=== PATIENT | female | born 1955 | race African-American/Black ===

== ENCOUNTER 2019-01-16 12:17 | Emergency (ER) | payer MEDICARE ==
[~2019-01-16] VITALS: Ht 165.1 cm; Wt 76.0 kg
[~2019-01-16 12:17] MED LIST: CIP250T PO; ESOM40CA PO; LEVO5TAB2 PO; MACROBID PO; MOME17SP NS; ZOF4T PO
[2019-01-16 12:32] VITALS: BP 145/86
[2019-01-16] MEDS ORDERED: mupirocin 2% ointment 22GM TP STA (13:26)
== END 2019-01-16 13:43 | disposition home or self-care (01) ==
LOC: ER 12:18
DX: R21 Rash and other nonspecific skin eruption (principal); E03.9 Hypothyroidism, unspecified; F10.99 Alcohol use, unspecified with unspecified alcohol-induced disorder; Z86.14 Personal history of Methicillin resistant Staphylococcus aureus infection; Z88.2 Allergy status to sulfonamides; Z88.8 Allergy status to other drugs, medicaments and biological substances; Z79.899 Other long term (current) drug therapy; Y90.9 Presence of alcohol in blood, level not specified
CPT/HCPCS: 99282

== ENCOUNTER 2021-10-07 02:12 | Emergency (ER) | payer MEDICARE ==
[~2021-10-07] VITALS: Ht 165.1 cm; Wt 75.0 kg
[~2021-10-07 02:12] MED LIST changes: -MOME17SP NS; +MOME17SP5 NS
[2021-10-07] MEDS ORDERED: dexamethasone sod phosphate 10mg/ml inj IV STA (05:04)
[2021-10-07] MEDS ORDERED: BEBTELOVIMAB 175 MG/2 ML VIAL IV ONE (05:05)
[2021-10-07 06:48] VITALS: BP 141/77
== END 2021-10-07 06:49 | disposition home or self-care (01) ==
LOC: ER 02:12
DX: U07.1 COVID-19 (principal); J45.909 Unspecified asthma, uncomplicated; E03.9 Hypothyroidism, unspecified; Z01.84 Encounter for antibody response examination; Z88.2 Allergy status to sulfonamides; Z88.8 Allergy status to other drugs, medicaments and biological substances
CPT/HCPCS: 71045; 96374; 99284; J1100; M0222; Q0222; 99283

== ENCOUNTER 2024-02-09 09:59 | Emergency (ER) | payer MEDICARE ==
[~2024-02-09] VITALS: Ht 165.1 cm; Wt 70.0 kg
[2024-02-09 10:00] VITALS: BP 136/73; PULSE 100; RESP 15; O2SAT 98
[2024-02-09] MEDS: normal saline 1000ML IV soln IVB ONE (11:19)
[2024-02-09 11:32] LABS: BASOPHILS % (AUTO) 0.2 % (0-1); EOSINOPHILS % (AUTO) 0.6 % (0-6); HEMATOCRIT 37.6 % (35.0-45.0); HEMOGLOBIN 12.7 g/dl (12.0-16.0); LYMPHOCYTES # (AUTO) 0.3 X10'3 (1.1-4.8); LYMPHOCYTES % (AUTO) 5.8 % (21-51); MEAN CORPUSCULAR HEMOGLOBIN 29.6 PG (27.0-31.0); MEAN CORPUSCULAR HGB CONC 33.9 g/dL (33.0-36.5); MEAN CORPUSCULAR VOLUME 87.4 FL (78-98); MEAN PLATELET VOLUME 7.3 FL (7.4-10.4); MONOCYTES # (AUTO) 0.3 X10'3 (0-0.9); MONOCYTES % (AUTO) 6.6 % (2-12); NEUTROPHILS # (AUTO) 4.2 X10'3 (1.8-7.7); NEUTROPHILS % (AUTO) 86.8 % (42-75); PLATELET COUNT 266 X10'3 (140-440); RED CELL DISTRIBUTION WIDTH 14.2 % (11.5-14.5); WHITE BLOOD COUNT 4.8 X10'3 (4.5-11.0)
[2024-02-09 11:39] LABS: BILIRUBIN,URINE NEGATIVE (Neg); CLARITY,URINE SLIGHTLY CLOUDY (Clear); COLOR,URINE YELLOW (Yellow); GLUCOSE, URINE NEGATIVE (Neg); KETONES,URINE 15 mg/dl (Neg); LEUKOCYTE ESTERASE ,URINE NEGATIVE (Neg); NITRITES, URINE NEGATIVE (Neg); OCCULT BLOOD,URINE NEGATIVE (Neg); PROTEIN,URINE 30 mg/dl (Neg); UROBILINOGEN,URINE 0.2 E.U/dL (0.2-1.0)
[2024-02-09 11:45] LABS: UA COLLECTION TYPE CLN CATCH MIDSTREAM
[2024-02-09 11:47] LABS: RBC,URINE 0-2 /HPF (0-2)
[2024-02-09] MEDS: ondansetron 4mg rapidly disintigrating tab PO ONE (11:47)
[2024-02-09 11:48] LABS: BACTERIA,URINE FEW /HPF (Neg); SQUAMOUS EPITHELIAL CELL,UR FEW /LPF (FEW)
[2024-02-09 11:49] LABS: TRANSITIONAL EPI CELLS,URINE FEW /HPF; WBC CLUMPS,URINE FEW /HPF (NEGATIVE)
[2024-02-09 11:50] LABS: ALANINE AMINOTRANSFERASE 14 U/L (12-78); ALBUMIN 3.6 G/DL (3.4-5.0); ALKALINE PHOSPHATASE 62 IU/L (46-116); ANION GAP 8 (8-16); ASPARTATE AMINO TRANSFERASE 17 U/L (10-37); BILIRUBIN,TOTAL 0.9 MG/DL (0.1-1.0); BLOOD UREA NITROGEN 16 MG/DL (7-18); CALCIUM 8.6 MG/DL (8.5-10.1); CHLORIDE 105 MMOL/L (99-107); GLUCOSE 113 MG/DL (70-104); LIPASE 15 U/L (16-77); POTASSIUM 3.9 MMOL/L (3.5-5.1); SODIUM 138 MMOL/L (135-145); TOTAL CARBON DIOXIDE 25.1 MMOL/L (24-32); TOTAL PROTEIN 7.3 G/DL (6.4-8.2); eCRCL 58 ML/MIN; eGFR 86 ML/MIN
[2024-02-09] MEDS ORDERED: ONDA-243 PO (12:25)
[2024-02-09 12:31] VITALS: TEMP 97.9
== END 2024-02-09 12:32 | disposition home or self-care (01) ==
LOC: ER 09:59
DX: E86.0 Dehydration (principal); R11.2 Nausea with vomiting, unspecified; R19.7 Diarrhea, unspecified; E03.9 Hypothyroidism, unspecified; J45.909 Unspecified asthma, uncomplicated; Z88.1 Allergy status to other antibiotic agents; Z88.2 Allergy status to sulfonamides; Z88.8 Allergy status to other drugs, medicaments and biological substances
CPT/HCPCS: 36415; 80053; 81001; 83690; 85025; 87088; 96360; 99283; J7030; 96361

== ENCOUNTER 2025-01-09 19:54 | Emergency (ER) | payer MEDICARE ==
[~2025-01-09] VITALS: Ht 165.1 cm; Wt 68.0 kg
[~2025-01-09 19:54] MED LIST changes: +ONDA-243 PO
[2025-01-09 20:36] LABS: MEAN PLATELET VOLUME 6.9 FL (7.4-10.4); RED CELL DISTRIBUTION WIDTH 13.1 % (11.5-14.5)
[2025-01-09 20:51] LABS: CREATININE 0.81 MG/DL (0.40-0.90); TOTAL CARBON DIOXIDE 24.7 MMOL/L (24-32); eCRCL 56 ML/MIN; eGFR 84 ML/MIN
[2025-01-09 21:30] LABS: LEUKOCYTE ESTERASE ,URINE MODERATE (Neg); NITRITES, URINE NEGATIVE (Neg); OCCULT BLOOD,URINE MODERATE (Neg)
--- NOTE | 2025-01-09 21:31 | RADIOLOGY REPORT ---
Exam: DI ABDOMEN,SINGLE VIEW(KUB) Indication: PAin Comparison: None Technique: 2 views Findings: Nonobstructive bowel gas pattern. The lower chest is unremarkable. No acute osseous finding. Impression: 1. Nonobstructive bowel gas pattern.
[2025-01-09 21:39] LABS: UA COLLECTION TYPE NON-SPECIFIED
[2025-01-09 21:54] LABS: SQUAMOUS EPITHELIAL CELL,UR FEW /LPF (FEW)
[2025-01-09 21:55] LABS: MUCUS STRANDS FEW /LPF (Neg); WBC CLUMPS,URINE FEW /HPF (NEGATIVE)
--- NOTE | 2025-01-10 02:07 | Physician Documentation ---
History of Present Illness Chief Complaint: Abdominal Pain Stated Complaint: ABD PAIN Time Seen by MD: 01:03 Primary Medical Doctor: BALBIR Mode of Arrival: POV HPI 70-year-old female presenting with abdominal pain She tells me that over the past couple of days she has been having pain in her left lower abdomen. She does report urinary frequency. Also tells me that she was constipated, did take some fiber, and then had some loose stools. No blood in the stool No definite fevers. No dysuria. No vomiting. She does have a history of diverticulitis. She tells me that about 3 and half weeks ago she was given antibiotics for possible diverticulitis. She says that this feels different today. Medication Reconciliation Allergies: Coded Allergies: cephalexin (Verified Allergy, Unknown, 01/09/25) clindamycin (Verified Allergy, Unknown, 01/09/25) metronidazole (Verified Allergy, Unknown, 01/09/25) prochlorperazine (Verified Allergy, Unknown, feet cramps, 01/09/25) promethazine (Verified Allergy, Unknown, 01/09/25) sulfamethoxazole (Verified Allergy, Unknown, rash, vomiting, 01/09/25) trimethoprim (Verified Allergy, Unknown, rash, vomiting, 01/09/25) Scheduled Amox Tr/Potassium Clavulanate (Augmentin 875-125 Tablet), 1 TAB PO TID Ciprofloxacin Hcl* (Cipro*), 250 MG PO BID, (Reported) Esomeprazole Mag Trihydrate* (Nexium*), 40 MG PO DAILY Mometasone Furoate* (Nasonex*), 2 SPRAYS NS DAILY, (Reported) Nitrofurantoin/Nitrofuran Mac* (Macrobid*), 100 MG PO BID, (Reported) Scheduled PRN Levocetirizine Dihydrochloride (Xyzal), 5 MG PO DAILY PRN, (Reported) ONDANSETRON ODT 4mg tablet (Ondansetron Odt), 1 TAB PO Q6H PRN PRN for nausea/vomiting Ondansetron 8mg ODT (Ondansetron Odt), 1 TAB PO TID PRN for nausea/vomiting Ondansetron ODT* (Zofran ODT*), 4 MG PO Q8H PRN Past Medical History Past Medical History: Allergic Rhinitis, Asthma, Hypothyroidism, MRSA Abscess Past Surgical History: other Other Past Surgical History: Thyroid nodule removed Alcohol Use: Occasionally Drug Use: none Lives In: Home Review of Systems Constitutional: Denies: fever Gastrointestinal: Reports: abdominal pain, nausea, diarrhea, constipated; Denies: vomiting Physical Exam Vital Signs: Temperature: 97.7, Source: Temporal, Heart Rate: 87, Respiratory Rate: 18, BP: 121/71, Pulse Oximetry: 98, Weight: 68.000 Physical Exam General: This is a pleasant older woman sitting calmly in bed, at bedside HEENT: Atraumatic, oropharynx appears dry Heart: Regular rate and rhythm, normal-appearing peripheral perfusion Lungs: normal work of breathing, normal oxygen saturation on room air Abdomen: Soft, nondistended, tender to palpation in the left abdomen, including in the left middle and left lower quadrants, no rebound or guarding. No significant right-sided tenderness Back: No CVA tenderness to percussion Neuro: Alert and oriented Psychiatric: Calm and cooperative with exam Progress Results/Orders Results/Orders Orders - AYAKA RIVAS MD Abdomen,Single View(Kub) (01/09/25 21:02) Cult Urine + [address] Ct (01/09/25 21:39) Urinalysis, Cult If Indicated (01/10/25 01:36) Completed Orders - AYAKA RIVAS MD Cbc/Diff (01/09/25 19:55) BMP (01/09/25 19:55) Lipase (01/09/25 19:55) CMP (01/09/25 19:55) Abdomen,Single View(Kub) (01/09/25 21:02) Ua W/Microscopic, Cult If Ind (01/09/25 20:05) Vital Signs 01/09/25 01/10/25 19:56 00:01 Temp 97.7 97.7 Pulse 100 87 Resp 18 18 B/P (MAP) 130/66 121/71 (88) Pulse Ox 96 98 Laboratory Tests Test 01/09/25 20:05 01/09/25 20:25 Urine Specimen Description Non-specified Urine Color Yellow Urine Clarity Clear Urine pH 6.0 Urine Specific [place] 1.015 Urine Protein Negative Urine Glucose (UA) Negative Urine Ketones 15 H Urine Occult Blood Moderate H Urine Nitrite Negative Urine Bilirubin Small Urine Urobilinogen 0.2 Urine Leukocyte Esterase Moderate H Urine RBC 3-10 Urine WBC 5-10 H Urine WBC Clumps Few Urine Squamous Epithelial Cells Few Urine Transitional Epithelial Cells Few Urine Bacteria 1+ Urine Mucus Few Urine Culture Indicated Indicated Volume Urine Centrifuged 10 ml Urine Comment White Blood Count 6.7 Red Blood Count 4.04 L Hemoglobin 11.7 L Hematocrit 34.3 L Mean Corpuscular Volume 84.8 Mean Corpuscular Hemoglobin 28.9 Mean Corpuscular Hemoglobin Concent 34.1 Red Cell Distribution Width 13.1 Platelet Count 316 Mean Platelet Volume 6.9 L Neutrophils (%) (Auto) 66.3 Lymphocytes (%) (Auto) 23.4 Monocytes (%) (Auto) 8.5 Eosinophils (%) (Auto) 1.5 Basophils (%) (Auto) 0.3 Neutrophils # (Auto) 4.4 Lymphocytes # (Auto) 1.6 Monocytes # (Auto) 0.6 Eosinophils # (Auto) 0.1 Basophils # (Auto) 0.0 CBC Comment Sodium Level 137 Potassium Level 3.5 Chloride Level 103 Carbon Dioxide Level 24.7 Anion Gap 9 Blood Urea Nitrogen 14 Creatinine 0.81 Estimated GFR/1.73 m2 84 BUN/Creatinine Ratio 17.3 Glucose Level 116 H Calcium Level 8.5 Total Bilirubin 1.0 Aspartate Amino Transf (AST/SGOT) 16 Alanine Aminotransferase (ALT/SGPT) 13 Alkaline Phosphatase 78 Total Protein 7.4 Albumin 3.4 Globulin 4.0 Albumin/Globulin Ratio 0.9 L Lipase 19 Chemistry Comments Microbiology Date/Time Source Procedure Growth Status 01/09/25 21:39 Urine Nonspecified Urine Culture - Preliminary Culture received. Resulted Re-Evaluation Re-Evaluation : Re-Evaluation Time: 07:25 Progress Accepted care at change of shift. Patient with left lower quadrant pain and history of diverticulitis, CT scan was performed because patient reports that this feels slightly different. White blood cell count and urinalysis are negative. Patient has undergone her CT and we are awaiting results. Re- examination of the patient shows that she is sleeping, resting comfortably, and palpation of the abdomen reveals some mild tenderness in the left mid and left lower quadrants. Rashmi Ravi MD EKG/XRAY/CT/US/VASC/MRI Abdominal X-Ray : Additional Comment Abdominal x-ray ordered from triage shows nonobstructive bowel gas pattern Medical Decision Making Additional information obtaine: N/A Findings na Differential Dx:Considerations: Appendicitis, Bowel obstruction, Constipation, Diverticular disease, Urinary tract infection, Urolithiasis Additional Comments The patient presents with left-sided abdominal pain. Her labs are unremarkable, no significant leukocytosis. Initial urinalysis is equivocal. Unfortunately we do not have CT imaging available tonight. She will be observed overnight with p roma for CT scan in the morning. We will try to obtain a repeat urinalysis. The patient was signed out at shift change, pending CT scan and to determine disposition. Departure Time of Disposition: 07:51 Disposition: 01 HOME / SELF CARE / HOMELESS Impression: Primary Impression: Diverticulitis Referrals: NO PRIMARY CARE PROVIDER (PCP) Prescriptions Ondansetron 8mg ODT (Ondansetron Odt) 8 Mg Tab.rapdis 1 TAB PO TID PRN for nausea/vomiting, #10 TAB Prov: FAY RAVI MD 01/10/25 Amox Tr/Potassium Clavulanate (Augmentin 875-125 Tablet) 1 Each Tablet 1 TAB PO TID, #30 TAB Prov: FAY RAVI MD 01/10/25 Education Educated: Patient Educated regarding: diagnosis, treatment Signature Scribe Signature: na Attestation: AYAKA Perez MD Jan 10, 2025 02:07 FAY RAVI MD Jan 10, 2025 07:29
[2025-01-10 04:26] LABS: LEUKOCYTE ESTERASE ,URINE SMALL (Neg); NITRITES, URINE NEGATIVE (Neg); OCCULT BLOOD,URINE TRACE-INTACT (Neg)
[2025-01-10 04:38] LABS: UA COLLECTION TYPE VOIDED
[2025-01-10 04:39] LABS: SQUAMOUS EPITHELIAL CELL,UR FEW /LPF (FEW)
[2025-01-10] MEDS ORDERED: iohexol 300mg/ml 100ml inj. ONE (07:01)
--- NOTE | 2025-01-10 07:36 | RADIOLOGY REPORT ---
CT CT ABDOMEN PELVIS W/ IV CONTRAST INDICATION: Left lower quadrant abdominal pain EXAM DATE: 01/10/2025 07:01 AM COMPARISON: DI ABDOMEN,SINGLE VIEW(KUB) on DOS: 01/09/25 RADIATION DOSE: CTDIvol: 15 mGy, DLP: 782 mGy*cm PROCEDURE: Helical CT images were obtained of the abdomen and pelvis with IV contrast Sagittal and coronal reconstructions are provided. ORAL CONTRAST: None. ADDITIONAL IMAGES / REFORMATS: None All CT scans at this medical facility are performed using dose modulation techniques as appropriate to a performed exam including the following: Automated exposure control was utilized; adjustment of the MA and/or KV according to patient size; and use of iterative reconstruction technique. FINDINGS: LUNG BASE: Normal. LIVER: Normal. GALLBLADDER AND BILIARY TREE: No calcified gallstones. Normal caliber wall. No intra- or extrahepatic biliary ductal dilation. PANCREAS: Normal. SPLEEN: Normal. BOWEL: Severe diverticulosis with mild diverticulitis at the splenic flexure. Appendix not definitive seen. ADRENALS: Normal. KIDNEYS AND URETER: Nonobstructive right kidney stone. BLADDER: Normal. REPRODUCTIVE ORGANS: Normal. LYMPH NODES:No lymphadenopathy. PERITONEUM: No ascites or free air. No other fluid collection. VESSELS: Scattered atherosclerotic calcifications are noted. RETROPERITONEUM: Normal. ABDOMINAL WALL: Normal. BONES: Scattered osseous degenerative changes are noted. IMPRESSION: Severe diverticulosis with mild diverticulitis at the splenic flexure.
[2025-01-10] MEDS ORDERED: ONDA-245 PO (07:55)
[2025-01-10] MEDS ORDERED: AMOX-117 PO (07:55)
[2025-01-10 11:17] VITALS: BP 148/89; PULSE 77; RESP 18; TEMP 97.7; O2SAT 99
== END 2025-01-10 11:28 | disposition home or self-care (01) ==
LOC: ER 19:55
DX: K57.32 Diverticulitis of large intestine without perforation or abscess without bleeding (principal); J45.909 Unspecified asthma, uncomplicated; E03.9 Hypothyroidism, unspecified; Z86.14 Personal history of Methicillin resistant Staphylococcus aureus infection; Z88.1 Allergy status to other antibiotic agents; Z88.2 Allergy status to sulfonamides; Z88.8 Allergy status to other drugs, medicaments and biological substances; Z79.899 Other long term (current) drug therapy; Z72.89 Other problems related to lifestyle
CPT/HCPCS: 36415; 74018; 74177; 80053; 81001; 83690; 85025; 87088; 99285; A4353; Q9967